=== PATIENT | male | born 1935 | race Caucasian/White ===

== ENCOUNTER 2016-12-18 02:58 | Inpatient (IN) | payer MEDICARE ==
--- NOTE | ~2016-12-18 | HP ---
History And Physical [facility] [address] [facility] [place]. [address] NAME: EDA BENSON : 34 STATUS : ADM Sal PAT#: [id number] AGE: 81 ADM/REG DATE : 12/18/16 MR#: [id number] REPORT SERV DATE: 12/18/16 DICTATED BY: SABAS BENJAMIN DATE: 12/18/16 REPORT STATUS : Draft TRANSCRIBED BY: MODL DATE: 12/18/16 DATE OF ADMISSION: 12/18/2016 CHIEF COMPLAINT: Bleeding per rectum. HISTORY OF PRESENT ILLNESS: This is an 81-year-old male with a history of atrial fibrillation, DVT, and pulmonary embolism in the past who presents to the emergency room at [facility] with the above-mentioned complaint. History was obtained from the patient, and reviewing data available on the [employer] system. According to Mr. Benson, he had been in his usual state of health until early in the morning on Saturday when he woke up, and after a while had to have a bowel movement. He did this and it was nothing but bright red blood. He then realized it was all blood. He thought it was something he ate, may be a vegetable and he was fine during the day. By evening, he was weaker and then had series of bowel movements all bright red and he knew he was bleeding. Finally, he decided to come to the emergency room to be evaluated. In the emergency room, initial workup revealed acute GI bleeding with coagulopathy secondary to warfarin therapy. He also had acute kidney injury. Hospitalist Service was asked to admit him for further evaluation and treatment. At the time of my evaluation, he denied any chest pain, palpitations, or orthopnea. He had no cough, hemoptysis, night sweats, or weight loss. He denied any recent falls or loss of consciousness. No history of fevers, chills, nausea, or vomiting. No history of hematuria. No other history of recent travel or exposures. PAST MEDICAL HISTORY: Significant for history of DVT and pulmonary embolism. He has coronary artery disease with stent placement, history of atrial fibrillation, as well. He is on chronic anticoagulation for all these. He has hypertension, history of diverticulitis, history of hernia repair, and appendectomy. SOCIAL HISTORY: He does not smoke, drink, or use recreational drugs. FAMILY HISTORY: Noncontributory. MEDICATIONS: His medications at home were reviewed by me in the chart today and reordered by me. REVIEW OF SYSTEMS: As in history of present illness. All other systems were reviewed in detail and are quite unremarkable. PHYSICAL EXAMINATION: GENERAL: This is a pleasant 81-year-old, not in any acute distress. HEENT: His head is atraumatic, normocephalic. He is alert, awake, oriented to time, place, and person. Pupils are equal, reacting to light and accommodating. External ocular muscles History And Physical [address] [address] NAME: EDA BENSON : 34 STATUS : ADM Sal PAT#: [id number] AGE: 81 ADM/REG DATE : 12/18/16 MR#: [id number] REPORT SERV DATE: 12/18/16 DICTATED BY: SABAS BENJAMIN DATE: 12/18/16 REPORT STATUS : Draft TRANSCRIBED BY: DESTINI DATE: 12/18/16 are intact. Membranes are moist and pink. Sclerae are nonicteric. NECK: Supple with no jugular venous distention, lymphadenopathy, or thyromegaly. LUNGS: Clear to auscultation with no wheezes, rubs, or crackles. HEART: Heart sounds are regular with no murmurs, rubs, or gallops. ABDOMEN: Soft, nontender. Bowel sounds are present. EXTREMITIES: Show no cyanosis, clubbing, or edema. NEUROLOGIC: Grossly intact. No focal sensory or motor deficits. Higher functions appear intact. Gait was not examined. VITAL SIGNS: His vital signs today show a temperature of 97.5, pulse 79, respirations 20 a minute, blood pressure is 141/69, oxygen saturations are 96%, breathing 2 L of oxygen via nasal cannula. LABORATORY DATA: Reviewed on the [employer] system showed a sodium of 142, potassium 3.6, chloride 108, and CO2 of 27. BUN was 21 with a creatinine of 1.46, and glucose was 101. CBC showed a white blood cell count of 6600, hemoglobin of 11.8, hematocrit 34.9, and platelet count was 134,000. His prothrombin time was 23.8 with an INR of 2.2 today. Urinalysis was not done. A 12-lead EKG done in the emergency room was reviewed and interpreted by me. There is atrial fibrillation at a rate of 71 per minute. No other imaging was performed today. A 12 lead EKG done in emergency room was reviewed and interpreted by me. There is atrial fibrillation at a rate of 71 per minute. IMPRESSION: 1. Acute gastrointestinal bleeding to coagulopathy secondary to Coumadin therapy. 2. Atrial fibrillation, rate controlled. 3. Acute kidney injury. 4. History of deep venous thrombosis and pulmonary embolism. 5. Coronary artery disease with stent placement, on Coumadin therapy. 6. Essential hypertension. 7. History of diverticulitis. PLAN: We will admit Mr. Benson to the Hospitalist Service with cardiac telemetry for a 24- hour observation period. We will type cross and transfuse two units of fresh frozen plasma as ordered in the ER and also give him 5 units of vitamin K right away to reverse his coagulopathy. We will go ahead and consult Gastroenterology Service to see him in the morning and keep him NPO. We will also follow hemoglobin and hematocrit levels every 6 hours and transfuse as needed. He will also be on IV fluids for aggressive volume replacement. We will follow chemistry, electrolytes, and replace as needed and follow CBC. His atrial fibrillation is stable. His rate is controlled. We will go ahead and consult his computer systems information director, Dr. Linares, regarding his cardiac stents and anticoagulation. He will be placed on SCDs for DVT prophylaxis while he is here. I have discussed the above plans with the patient. His questions were answered, and he is agreeable to the above recommendations. Hospitalist Service will be following him during his stay here. History And Physical [address] [address] NAME: EDA BENSON : 34 STATUS : ADM Sal PAT#: [id number] AGE: 81 ADM/REG DATE : 12/18/16 MR#: [id number] REPORT SERV DATE: 12/18/16 DICTATED BY: SABAS BENJAMIN DATE: 12/18/16 REPORT STATUS : Draft TRANSCRIBED BY: DESTINI DATE: 12/18/16 /DESTINI Sabas Benjamin M.D. / [id number] CC: Celio Stephenson M.D.
--- NOTE | ~2016-12-18 | DS ---
Discharge Summary [facility] [address] [place]. [address] NAME: EDA BENSON : 34 STATUS : DIS IN PAT#: [id number] AGE: 81 ADM/REG DATE : 12/18/16 MR#: [id number] REPORT SERV DATE: 12/27/16 DICTATED BY: DATE: REPORT STATUS : Draft TRANSCRIBED BY: MODL DATE: 12/26/16 ADMISSION DATE: 12/18/2016 DISCHARGE DATE: 12/26/2016 The patient was admitted to the [facility] Hospitalist Service. ATTENDING PHYSICIANS: Dr. Jennie Persaud and Dr. Odilon Askew. CONSULTANTS: Included Dr. Lentz of Gastroenterology and Dr. Liriano of Cardiology. DISCHARGE DIAGNOSES: 1. Acute blood loss anemia due to lower GI bleed, diverticular, status post embolization in Interventional Radiology on 12/18/2016. Status post packed red blood cell transfusion on 12/19/2016 and 12/21/2016. Status post fresh frozen plasma on 12/18/2016. Discharge hemoglobin value 8.1 - asymptomatic. 2. Chronic anticoagulation for atrial fibrillation, history of DVT, history of PE. Coumadin restarted 12/23/2016 with no evidence of rebleeding. 3. Permanent atrial fibrillation. 4. Chronic systolic heart failure with ejection fraction of 45%, compensated. 5. Coronary artery disease, status post remote cardiac stenting. 6. History of chronic venous insufficiency and insufficiency ulcers - stable. 7. Chronic kidney disease, stage 2-3. 8. Documented past histories of diabetes and hypothyroidism - no data to support those as current diagnoses. IMAGING: Included a tagged red blood cell scan on 12/18/2016 showing active GI bleed at the level of the sigmoid colon. PROCEDURES: Coil embolization of active bleeding point identified in the region of the junction of the distal descending colon and sigmoid colon on 12/18/2016 in Interventional Radiology. PERTINENT LABS: Creatinine values ranging from 1.28 to 1.46 this admission. Normal electrolytes. Normal liver enzymes. Normal white blood cell count. Hemoglobin value initially 11.7, as low as 7.4 this admission, 8.1 at discharge. Platelet counts ranging from 112 to 149. INR at admission 2.2, 1.5 at discharge. BRIEF HISTORY: For full details, please see the previously dictated history of present illness by Sabas Pierce. This is an 81-year-old white male with history of atrial fibrillation, DVT, pulmonary embolism, on chronic anticoagulation, who presented to the emergency department on 12/18/2016 with several episodes of bright red blood per rectum. He was admitted to the Hospitalist Service for further management and evaluation. HOSPITAL COURSE: For full details, please reference interim discharge summary by Dr. Jennie Persaud for dates of service 12/18/2016 through 12/24/2016. The patient's bright red blood per rectum was found to be diverticular in nature on the basis of a tagged red blood cell scan. Discharge Summary [address] [place]. [address] NAME: EDA BENSON : 34 STATUS : DIS IN PAT#: [id number] AGE: 81 ADM/REG DATE : 12/18/16 MR#: [id number] REPORT SERV DATE: 12/27/16 DICTATED BY: DATE: REPORT STATUS : Draft TRANSCRIBED BY: MODL DATE: 12/26/16 The patient underwent successful coil embolization in Interventional Radiology on the day of admission. The patient was given 2 units of packed red blood cells and one unit of FFP. He was monitored in the intensive care unit after his embolization, and transferred back to the floor on 12/21/2016. Recommendation was to resume his Coumadin per both Cardiology and Gastroenterology on 12/23/2016. Pharmacy was consulted and managed Coumadin dosing. The patient received 5 mg of Coumadin on the to and with a discharge INR of 1.5, to resume Coumadin 3 mg p.o. daily per his prior home regimen, with close monitoring by Home Health and results to the [facility]. The patient had no recurrence of bleeding following re-initiation of Coumadin, and his blood counts remained stable with hemoglobin ranging from 8.1 to 8.5. He was asymptomatic with this and denied any chest pain, shortness of breath, dizziness, or weakness. He was evaluated by Physical Therapy and was found to be doing too well to benefit from inpatient rehab. He was able to ambulate more than 200 feet in the hallways with minimal assistance. Thus, he is being discharged to home with Home Health for vital sign and lab monitoring and home physical therapy for additional strengthening. DISCHARGE DISPOSITION: To home in the care of his supportive with no specific activity or dietary restrictions. Home health and home physical therapy are being established as above. Home Health is requested to check a PT/INR on 12/28/2016, and again on 12/31/[address] Linares in the [facility] for any additional adjustments. The patient also needs to follow up with primary care provider, Say barrientos, within two to three weeks for repeat CBC. He is instructed to return to the emergency department if he develops any recurrence of bright red blood per rectum, at which point, Coumadin may need to be discontinued and consideration of IVC filter instead. DISCHARGE MEDICATIONS: Include: 1. Amlodipine 10 mg p.o. at bedtime. 2. Vitamin C 800 mg p.o. twice a day. 3. Vitamin D 400 units p.o. q.a.m. 4. Vitamin D 5000 international units p.o. q.a.m. 5. Proscar 5 mg p.o. at bedtime. 6. Furosemide 40 mg p.o. q.a.m. 7. Iron sulfate 300 mg p.o. twice a day. 8. Imdur 30 mg p.o. q.a.m. 9. Prinivil 10 mg p.o. at bedtime. 10.Magnesium oxide 400 mg p.o. q.p.m. 11.Toprol-XL 25 mg p.o. q.p.m. 12.Potassium chloride 10 mEq p.o. q.a.m. 13.MiraLAX one packet p.o. at bedtime every other night. 14.Vitamin A 8000 international units p.o. q.a.m. 15.Jantoven 3 mg p.o. every afternoon. Discharge Summary [address] [facility] [place]. [address] NAME: EDA BENSON : 34 STATUS : DIS IN PAT#: [id number] AGE: 81 ADM/REG DATE : 12/18/16 MR#: [id number] REPORT SERV DATE: 12/27/16 DICTATED BY: DATE: REPORT STATUS : Draft TRANSCRIBED BY: MODL DATE: 12/26/16 16.Hydralazine 100 mg p.o. three times a day. 17.Ginkgo one cap p.o. q.a.m. 18.Centrum multivitamin half a tablet p.o. twice a day. 19.Vitamin B one tablet p.o. twice a day. 20.Fish oil one tablet p.o. every afternoon. 21.Garlic 500 mg p.o. every afternoon. 22.Colace 100 mg p.o. b.i.d. The patient's beetroot from home is held as this could cause red stools obscuring the patient's ability to detect blood in the outpatient setting. Also his aspirin is held as he has no known coronary artery disease, in order to decrease bleeding risk on both Coumadin and aspirin. Thirty five minutes was spent in completion of the discharge. DICTATED BY: Celio Rey/DESTINI Odilon Askew M.D. / [id number] CC: Celio Rey M.D. C. Samuel Ledford, M.D.
--- NOTE | ~2016-12-18 | CN ---
Consultation Report [facility] [address] [place]. [address] NAME: EDA BENSON : 34 STATUS : ADM Sal PAT#: [id number] AGE: 81 ADM/REG DATE : 12/18/16 MR#: [id number] REPORT SERV DATE: 12/19/16 DICTATED BY: GIOVANNI LIRIANO DATE: 12/18/16 REPORT STATUS : Draft TRANSCRIBED BY: MODL DATE: 12/18/16 CARDIOLOGY CONSULTATION DATE OF CONSULTATION: REASON FOR CONSULTATION: GI bleed in the setting of chronic atrial fibrillation and usage of anticoagulants and anti-platelet therapy. HISTORY: The patient is an 81-year-old gentleman followed by my partner, Dr. Linares, with a history of permanent atrial fibrillation, chronic systolic heart failure with an EF of 45%, coronary artery disease, and chronic venous insufficiency. He was last hospitalized in 04/2010 for volume overloaded status. He was seen on 10/18/2016 and at that time was stable. Over the weekend, he noted a change in his bowel movements and yesterday developed recurrent bouts of melanotic stool. He presented to the ER for further evaluation and therapy. He has had no PND or orthopnea. No chest discomfort. The patient has chronic venous stasis with history of multiple recurrent ulcerations and endovascular procedures. He is followed by home health and the [facility] at [facility]. CURRENT HOME MEDICATIONS: Amlodipine 10 every afternoon, ascorbic acid 800 b.i.d., aspirin 81 mg, B complex, vitamins daily, cholecalciferol 5000 per day, finasteride 5 per day, furosemide 40 q.a.m., ginkgo biloba one capsule q.a.m., hydralazine 100 three times a day, isosorbide 30 each evening, Prinivil 10 q.a.m., Mag-Ox 400 daily, metoprolol 25 q.p.m., multivitamins b.i.d., potassium 10 every afternoon, beetroot [id number], fish oil unknown strength, garlic 500 at bedtime, vitamin A 1000 q.a.m., and Jantoven as directed. ALLERGIES OR INTOLERANCES: Diltiazem and heparin. SOCIAL HISTORY: for 60 years. Lives with his . 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 Negative for alcohol or tobacco use. He attends [employer] fellowship for the past 20 years. FAMILY HISTORY: Brother of diabetes. Mother of heart disease. Father of heart disease. He has four sons, two with diabetes and two with Parkinson's. PAST MEDICAL HISTORY/REVIEW OF SYSTEMS: He has had previous exacerbations of heart failure and has been hospitalized a couple of times for such. He has chronic atrial fibrillation and LV dysfunction as noted above. Type 2 diabetes mellitus. His CHADS2-VASc score is 6, and he is on chronic anticoagulation for stroke prevention. PHYSICAL EXAMINATION: GENERAL: An 81-year-old white male, pleasant, in no acute distress. VITAL SIGNS: Blood pressure 141/69, pulse 79, respirations 18. Consultation Report [address] [address] NAME: EDA BENSON : 34 STATUS : ADM Sal PAT#: [id number] AGE: 81 ADM/REG DATE : 12/18/16 MR#: [id number] REPORT SERV DATE: 12/19/16 DICTATED BY: GIOVANNI LIRIANO DATE: 12/18/16 REPORT STATUS : Draft TRANSCRIBED BY: DESTINI DATE: 12/18/16 SKIN: No xanthelasmas. HEENT: Normocephalic. There is no pallor. Sclerae white. JVD is not elevated. CHEST: No crackles. CARDIAC: S1 variable, S2 singular. There are no murmurs. There are no gallops. ABDOMEN: Without tenderness. EXTREMITIES: Lower extremities are wrapped for his venous insufficiency. NEUROLOGIC: No focal deficits. IMPRESSION: Gastrointestinal bleed, likely diverticular. Hold Coumadin for the time being. Ideally, he should be on some type of anticoagulant given his high stroke score risk. Further recommendations as his course evolves. FRANKO/DESTINI Giovanni Liriano M.D. / [id number] CC: Celio Stephenson M.D.
--- NOTE | ~2016-12-18 | CN ---
Consultation Report [facility] [address] [place]. [address] NAME: EDA BENSON : 34 STATUS : ADM Sal PAT#: [id number] AGE: 81 ADM/REG DATE : 12/18/16 MR#: [id number] REPORT SERV DATE: 12/18/16 DICTATED BY: DESTINY GREEN DATE: 12/18/16 REPORT STATUS : Draft TRANSCRIBED BY: MODL DATE: 12/18/16 GI CONSULTATION DATE OF CONSULTATION: 12/18/2016 REASON FOR CONSULTATION: Evaluation and management of lower GI bleeding. HISTORY OF PRESENT ILLNESS: Mr. Benson is an 81-year-old male patient, who was admitted on 12/18/2016 with a chief complaint of lower GI bleeding. 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 The patient states that initially he woke up and had a bowel movement just a slight amount of bright red blood intermixed that he really states he did not think nothing about. He went throughout the day. However, in the afternoon he began to have more bright red blood per rectum. He states this was very large volume and happened multiple times. He awoke his in the middle of the night to bring him into the emergency room. He denies any associated abdominal pain. He has never had GI bleeding before. He has never had an EGD nor a colonoscopy before. He has continued to pass bright red blood on my assessment. Rectal exam was going to be attempted; however, when I turned him over, he had nothing but bright red blood with clots filling up his brief. He states that this is continually happening, he is unable to control it. Hemoglobin on admission 11.7 has currently dropped to 10.7. He does have a history of atrial fibrillation, on a routine medication of Jantoven. INR on admission was 2.2. He has received 5 mg of vitamin K, and per orders of the Hospitalist, he is going to get a unit of FFP. I have discussed with the patient as well as the patient's , who is present at the bedside. We are going to send him for a stat tagged red blood cell scan, and if positive, to Interventional Radiology for treatment. If negative, he will have clear liquid diet, bowel prep this afternoon, and colonoscopy in the morning. Risks, benefits, alternatives, and complications were listed for them to include, but not limited to risk of bleeding, perforation, infection, reaction to medication, as well as cardiac and pulmonary side effects. PAST MEDICAL HISTORY: Positive for chronic systolic heart failure; chronic atrial fibrillation, on Jantoven; coronary artery disease; chronic venous insufficiency; CKD 3; type 2 diabetes; history of a DVT; hypertension; hypothyroidism; hyperlipidemia; PE; tuberculosis, exposure as a child; cardiac stent placement; and diverticulitis. PAST SURGICAL HISTORY: Hernia repair and appendectomy. SOCIAL HISTORY: He is . Lives independently with his . Denies alcohol, tobacco, or illicits. FAMILY HISTORY: Noncontributory from a GI standpoint. ALLERGIES: CARDIZEM AND HEPARIN. Consultation Report [address] [place]. [address] NAME: EDA BENSON : 34 STATUS : ADM Sal PAT#: [id number] AGE: 81 ADM/REG DATE : 12/18/16 MR#: [id number] REPORT SERV DATE: 12/18/16 DICTATED BY: DESTINY GREEN DATE: 12/18/16 REPORT STATUS : Draft TRANSCRIBED BY: DESTINI DATE: 12/18/16 HOME MEDICATIONS: Norvasc, vitamin C, aspirin, vitamin B complex, vitamin D3, vitamin D, Proscar, Lasix, ginkgo biloba, hydralazine, Imdur, Proventil, magnesium oxide, Toprol, Centrum, multivitamin, potassium, beetroot, fish oil, garlic, vitamin A, and Jantoven. REVIEW OF SYSTEMS: A 10-point review of systems has been obtained with pertinent positives being addressed in the history of present illness. PHYSICAL EXAMINATION: VITAL SIGNS: Temperature 97.1, pulse 72, respirations 16, and blood pressure 122/67. NEUROLOGIC: Reveals an alert male, resting in bed with no obvious focal deficits. GENERAL: Cooperative, in no apparent distress. Awake, alert, and oriented x3. HEAD, EARS, EYES, NOSE, AND THROAT: Anicteric. Pupils are equal, round, and reactive to light and accommodation. Normocephalic and atraumatic. NECK: No JVD. No palpable nodes. Supple. LUNGS: Diminished throughout. Normal respiratory effort exhibited. CARDIOVASCULAR SYSTEM: Atrial fibrillation, controlled rate. ABDOMEN: Soft, nondistended, and nontender. Active bowel sounds in all four quadrants. EXTREMITIES: Very scant mild lower extremity edema. RECTAL: Deferred. Upon assessment, the patient was having continuous bright red blood per rectum with clots. PERTINENT LABORATORY DATA: Sodium 142, potassium 3.6, BUN 21, and creatinine 1.46. White count 6.6, hemoglobin 10.7, hematocrit 32.3, and platelet count 134 with an INR of 2.2. ASSESSMENT: 1. Lower gastrointestinal bleed, most likely diverticular in nature. 2. Coagulopathy. 3. Acute blood loss anemia. 4. History of atrial fibrillation, on . 5. History of congestive heart failure. PLAN: 1. Stat tagged red blood cell scan, positive for intervention with the Interventional Radiology. 2. FFP. 3. Recheck INR, must be down to 1.5 or less. If tagged scan is negative, then we will prep him for colonoscopy to be done on 12/19/2016. We will follow his H and H q.6 hours and transfuse as needed. Other recommendations to follow endoscopy. RENEA/DESTINI Elizabeth Consultation Report [address] [place]. [address] NAME: EDA BENSON : 34 STATUS : ADM Sal PAT#: [id number] AGE: 81 ADM/REG DATE : 12/18/16 MR#: [id number] REPORT SERV DATE: 12/18/16 DICTATED BY: DESTINY GREEN DATE: 12/18/16 REPORT STATUS : Draft TRANSCRIBED BY: MODL DATE: 12/18/16 HAVEN Peralta / [id number] CC: Celio Stephenson M.D.
--- NOTE | ~2016-12-18 | IDS ---
Interim Discharge Summary [facility] [address] [place]. [address] NAME: EDA BENSON : 33 STATUS : ADM IN PAT#: [id number] AGE: 81 ADM/REG DATE : 12/18/16 MR#: [id number] REPORT SERV DATE: 12/24/16 DICTATED BY: ELVIS ZAIDI DATE: 12/24/16 REPORT STATUS : Draft TRANSCRIBED BY: MODL DATE: 12/24/16 ADMISSION DATE: 12/18/2016 DISCHARGE DATE: Date of transfer back from the MICU is 12/21/2016. CONDITION: Condition of the patient so far is stable. DISPOSITION: Going to be to inpatient rehab, most likely [facility]. DIAGNOSES: So far include acute lower gastrointestinal bleed, which was severe and acute, secondary to diverticulosis and coagulopathy. The patient was given several units of blood transfusion, supportive care, and as he had massive and severe GI bleed, he was admitted to the ICU. The patient underwent angiography and embolization and GI has continued to see the patient. Now, the patient is stable and GI bleed essentially has resolved or at least resolving, but his hemoglobin and hematocrit continues to stay low. Requirement for chronic anticoagulation is acute in this patient also, as the patient has chronic atrial fibrillation and is at high risk for stroke. The patient also has a history of DVT and PE, which all the more requires anticoagulation. Web Interface Developer has been following this patient. He was seen by Dr. Liriano and now by Dr. Mckeon, and they both recommend that the patient go back on the Coumadin. Hence, his Coumadin has been restarted and we are watching very carefully to make sure that he does not have any more episodes of GI bleed. BRIEF HOSPITAL COURSE: The patient is a very pleasant 81-year-old male patient, who came in with massive lower gastrointestinal bleed. The patient received several units of blood transfusion, supportive care, and underwent angiography with embolization of the feeding vessel, and was transferred back from the ICU to a regular floor. On the floor, even though he has not been having any more acute episodes of visible GI bleed, his hemoglobin and hematocrit simply do not seem to be rising in fact that is falling. GI continues to see the patient and Cardiology is seeing the patient too and they have recommended that we restart the Coumadin because he is high risk for stroke also. Hence, the plan on this patient now is to definitely send him to a rehab as he is very deconditioned from massive GI bleed that he has had. The is very supportive and also wants the patient to be transferred to an inpatient rehab. However, they wanted definitive answers as to the risks of being off Coumadin and on Coumadin in this patient. I tried to explain to both the CHADS2 score and HAS-BLED score to the patient's family, but they would like to hear this from the GI specialist. The patient definitely does not want to have another episode of massive bleed like this, but he also seems to think that constipation may have been what set this off at this time. Hence most likely they are going to agree to anticoagulation with Coumadin. Hence, I have restarted this patient on Coumadin and I also have him on ferrous sulfate to improve his H and H. If his H and H at least stays stable within the next day or two, please transfer him to inpatient rehab, preferably [facility] according to . This is my interim summary and this patient will be taken over by my colleague on 12/25/2016. Interim Discharge Summary [address] [address] NAME: EDA BENSON : 33 STATUS : ADM IN [facility]#: [id number] AGE: 81 ADM/REG DATE : 12/18/16 MR#: [id number] REPORT SERV DATE: 12/24/16 DICTATED BY: ELVIS ZAIDI DATE: 12/24/16 REPORT STATUS : Draft TRANSCRIBED BY: DESTINI DATE: 12/24/16 JUNE/DESTINI Elvis Zaidi M.D. / [id number] CC: Elvis Zaidi M.D.
[2016-12-18 01:48] LABS: BASOPHILS 0.5 %; BASOPHILS ABSOLUTE 0.03 10/3/uL (0.0-0.16); EOSINOPHILS 4.1 %; EOSINOPHILS ABSOLUTE 0.27 10/3/uL (0.0-0.53); HEMOGLOBIN 11.7 g/dL (13.6-17.8); IMMATURE GRANULOCYTES 0.3 %; IMMATURE GRANULOCYTES ABSOLUTE 0.02 10/3/uL (0.0-0.11); LYMPHOCYTES 24.1 %; LYMPHOCYTES ABSOLUTE 1.58 10/3/uL (0.67-4.30); MEAN CORPUS HGB CONC 33.5 g/dL (32.0-36.0); MEAN CORPUSCULAR HEMOGLOB 30.8 pg (26.0-34.0); MEAN CORPUSCULAR VOLUME 91.8 fL (80-100); MEAN PLATELET VOLUME 10.8 fL (9.2-13.0); MONOCYTES 12.1 %; MONOCYTES ABSOLUTE 0.79 10/3/uL (0.21-1.20); NEUTROPHILS 58.9 %; NEUTROPHILS ABSOLUTE 3.86 10/3/uL (2.02-8.40); RBC DISTRIBUTION WIDTH 16.6 % (12.0-16.0); WHITE BLOOD CELLS 6.6 10/3/uL (4.5-10.5)
[2016-12-18 01:50] LABS: HEMATOCRIT 34.9 % (40.0-51.0); MANUAL DIFF NO %; PLATELET COUNT 134 10/3/uL (150-400)
[2016-12-18 01:54] LABS: INTERNATIONAL NORMAL RATI 2.2 UNITS (-)
[2016-12-18 01:55] LABS: PARTIAL THROMBO TIME 39.9 SEC (22.5-37.2); PROTIME (NOT ORD) 23.8 SEC (12.0-14.5)
[2016-12-18 02:02] LABS: A/G RATIO 1.1 (0.7-1.9); ALBUMIN 3.6 G/DL (3.5-5.0); ALKALINE PHOSPHATASE 82 U/L (45-117); CALCIUM, SERUM 8.6 MG/DL (8.5-10.4); CHLORIDE, SERUM 108 MMOL/L (96-112); CO2 (CARBON DIOXIDE) 27 MMOL/L (24-34); CREATININE 1.46 MG/DL (0.70-1.30); GFR AFRICAN AMERICAN 51 ML/MIN (>=60); GFR NON AFRICAN AMERICAN 44 ML/MIN (>=60); GLOBULIN 3.3 G/DL (2.5-4.1); GLUCOSE, SERUM 101 MG/DL (60-99); POTASSIUM, SERUM 3.6 MMOL/L (3.5-5.3); SGOT(AST) 11 U/L (5-40); SGPT(ALT) 11 U/L (5-65); SODIUM, SERUM 142 MMOL/L (135-148); TOTAL BILIRUBIN 0.6 MG/DL (0-1.2); TOTAL PROTEIN 6.9 G/DL (6.0-8.5)
[2016-12-18 02:03] LABS: BUN (BLOOD UREA NITROGEN) 21 MG/DL (6-23)
[~2016-12-18 02:58] MED LIST: ASAB PO; BEET ROOT; CENTRUM PO; D 5000 PO; FISH OIL1200 MG PO; GARLIC PO; HYDRALAZINE100 MG PO; IMDUR30 PO; JANTOVEN3 MG PO; KLOR-CON 1010 MEQ PO; L40 PO; MAGOX4 PO; NORV10 PO; PRIN10 PO; PROSCAR5 PO; SLO-NIACIN500 MG PO; TOPXL25 PO; VITAMIN A8000 UNIT PO; VITAMIN B-121000 MC1 SL; VITAMIN D400 UNI1 PO; VITC500 PO; VITE PO
[2016-12-18] MEDS ORDERED: CENTRUM PO (03:51)
[2016-12-18] MEDS ORDERED: GINKGO BILO2 PO (03:51)
[2016-12-18] MEDS ORDERED: L40 PO (03:52)
[2016-12-18] MEDS ORDERED: VITAMIN B PO (03:52)
[2016-12-18] MEDS ORDERED: VITAMIN C100 MG PO (03:54)
[2016-12-18] MEDS ORDERED: VITAMIN D400 UNI1 PO (03:54)
[2016-12-18] MEDS ORDERED: VITAMIN A8000 UNIT PO (03:54)
[2016-12-18] MEDS ORDERED: VITAMIN D31000 UNIT PO (03:55)
[2016-12-18] MEDS ORDERED: NORV10 PO (03:56)
[2016-12-18] MEDS ORDERED: [UNRECOGNIZED DRUG - OTHER] PO (03:57)
[2016-12-18] MEDS ORDERED: FISH OIL OTC PO (03:58)
[2016-12-18] MEDS ORDERED: JANTOVEN3 MG PO (04:00)
[2016-12-18] MEDS ORDERED: MAGOX4 PO (04:01)
[2016-12-18] MEDS ORDERED: TOPXL25 PO (04:01)
[2016-12-18] MEDS ORDERED: KDUR10 PO (04:01)
[2016-12-18] MEDS ORDERED: GARLIC 500 MG PO (04:04)
[2016-12-18] MEDS ORDERED: PROSCAR5 PO (04:06)
[2016-12-18] MEDS ORDERED: HYDRALAZINE100 MG PO (04:07)
[2016-12-18] MEDS ORDERED: PRIN10 PO (04:07)
[2016-12-18] MEDS ORDERED: ASAB PO (04:08)
[2016-12-18] MEDS ORDERED: IMDUR30 PO (04:08)
[2016-12-18 07:43] LABS: HEMATOCRIT 32.3 % (40.0-51.0); HEMOGLOBIN 10.7 g/dL (13.6-17.8)
[2016-12-18 13:34] LABS: HEMATOCRIT 27.2 % (40.0-51.0); HEMOGLOBIN 9.3 g/dL (13.6-17.8)
[2016-12-18 19:03] LABS: HEMATOCRIT 26.8 % (40.0-51.0); HEMOGLOBIN 9.2 g/dL (13.6-17.8)
[2016-12-18 19:13] LABS: INTERNATIONAL NORMAL RATI 1.6 UNITS (-)
[2016-12-18 19:23] LABS: PROTIME (NOT ORD) 19.3 SEC (12.0-14.5)
[2016-12-18 23:19] LABS: HEMATOCRIT 26.5 % (40.0-51.0)
[2016-12-19 03:06] LABS: BASOPHILS 0.1 %; BASOPHILS ABSOLUTE 0.01 10/3/uL (0.0-0.16); EOSINOPHILS 0 %; HEMATOCRIT 26.1 % (40.0-51.0); HEMOGLOBIN 8.7 g/dL (13.6-17.8); IMMATURE GRANULOCYTES 0.1 %; IMMATURE GRANULOCYTES ABSOLUTE 0.01 10/3/uL (0.0-0.11); LYMPHOCYTES 9.9 %; LYMPHOCYTES ABSOLUTE 0.79 10/3/uL (0.67-4.30); MEAN CORPUS HGB CONC 33.3 g/dL (32.0-36.0); MEAN CORPUSCULAR HEMOGLOB 30.9 pg (26.0-34.0); MEAN CORPUSCULAR VOLUME 92.6 fL (80-100); MEAN PLATELET VOLUME 11.3 fL (9.2-13.0); NEUTROPHILS 84.9 %; NEUTROPHILS ABSOLUTE 6.78 10/3/uL (2.02-8.40); PLATELET COUNT 116 10/3/uL (150-400); RBC DISTRIBUTION WIDTH 16.2 % (12.0-16.0)
[2016-12-19 03:08] LABS: RED CELL COUNT 2.82 10/6/uL (4.7-6.1)
[2016-12-19 03:16] LABS: INTERNATIONAL NORMAL RATI 1.5 UNITS (-)
[2016-12-19 03:22] LABS: BUN (BLOOD UREA NITROGEN) 18 MG/DL (6-23); CALCIUM, SERUM 7.9 MG/DL (8.5-10.4); CHLORIDE, SERUM 112 MMOL/L (96-112); CO2 (CARBON DIOXIDE) 26 MMOL/L (24-34); CREATININE 1.13 MG/DL (0.70-1.30); GFR AFRICAN AMERICAN 70 ML/MIN (>=60); GFR NON AFRICAN AMERICAN 60 ML/MIN (>=60); GLUCOSE, SERUM 158 MG/DL (60-99); PHOSPHORUS, SERUM 3.5 MG/DL (2.5-4.5); POTASSIUM, SERUM 3.5 MMOL/L (3.5-5.3); SODIUM, SERUM 145 MMOL/L (135-148)
[2016-12-19 06:49] LABS: HEMATOCRIT 23.9 % (40.0-51.0); HEMOGLOBIN 7.8 g/dL (13.6-17.8)
[2016-12-19 13:14] LABS: HEMATOCRIT 26.5 % (40.0-51.0)
[2016-12-19 16:18] LABS: HEMATOCRIT 26.5 % (40.0-51.0); HEMOGLOBIN 9.2 g/dL (13.6-17.8)
[2016-12-19 23:15] LABS: HEMATOCRIT 27.1 % (40.0-51.0); HEMOGLOBIN 8.8 g/dL (13.6-17.8)
[2016-12-20 05:23] LABS: BASOPHILS 0.2 %; BASOPHILS ABSOLUTE 0.02 10/3/uL (0.0-0.16); EOSINOPHILS 1.2 %; HEMATOCRIT 26.2 % (40.0-51.0); HEMOGLOBIN 8.8 g/dL (13.6-17.8); IMMATURE GRANULOCYTES 0.4 %; IMMATURE GRANULOCYTES ABSOLUTE 0.03 10/3/uL (0.0-0.11); LYMPHOCYTES 14.9 %; LYMPHOCYTES ABSOLUTE 1.22 10/3/uL (0.67-4.30); MANUAL DIFF NO %; MEAN CORPUS HGB CONC 33.6 g/dL (32.0-36.0); MEAN CORPUSCULAR HEMOGLOB 30.9 pg (26.0-34.0); MEAN CORPUSCULAR VOLUME 91.9 fL (80-100); MEAN PLATELET VOLUME 10.7 fL (9.2-13.0); MONOCYTES 9.6 %; MONOCYTES ABSOLUTE 0.79 10/3/uL (0.21-1.20); NEUTROPHILS 73.7 %; NEUTROPHILS ABSOLUTE 6.05 10/3/uL (2.02-8.40); PLATELET COUNT 125 10/3/uL (150-400); RBC DISTRIBUTION WIDTH 17.2 % (12.0-16.0); RED CELL COUNT 2.85 10/6/uL (4.7-6.1); WHITE BLOOD CELLS 8.2 10/3/uL (4.5-10.5)
[2016-12-20 05:33] LABS: BUN (BLOOD UREA NITROGEN) 17 MG/DL (6-23); CALCIUM, SERUM 8.1 MG/DL (8.5-10.4); CHLORIDE, SERUM 112 MMOL/L (96-112); CO2 (CARBON DIOXIDE) 26 MMOL/L (24-34); CREATININE 1.22 MG/DL (0.70-1.30); GFR AFRICAN AMERICAN 64 ML/MIN (>=60); GFR NON AFRICAN AMERICAN 55 ML/MIN (>=60); GLUCOSE, SERUM 143 MG/DL (60-99); POTASSIUM, SERUM 3.5 MMOL/L (3.5-5.3); SODIUM, SERUM 145 MMOL/L (135-148)
[2016-12-20 09:51] LABS: HEMATOCRIT 27.7 % (40.0-51.0)
[2016-12-20 11:25] LABS: INTERNATIONAL NORMAL RATI 1.3 UNITS (-)
[2016-12-20 16:14] LABS: HEMOGLOBIN 8.2 g/dL (13.6-17.8)
[2016-12-20 16:15] LABS: HEMATOCRIT 24.8 % (40.0-51.0)
[2016-12-21 06:01] LABS: BASOPHILS 0.2 %; BASOPHILS ABSOLUTE 0.01 10/3/uL (0.0-0.16); EOSINOPHILS 2.3 %; EOSINOPHILS ABSOLUTE 0.14 10/3/uL (0.0-0.53); HEMATOCRIT 22.7 % (40.0-51.0); HEMOGLOBIN 7.4 g/dL (13.6-17.8); IMMATURE GRANULOCYTES 0.5 %; IMMATURE GRANULOCYTES ABSOLUTE 0.03 10/3/uL (0.0-0.11); LYMPHOCYTES 27.3 %; LYMPHOCYTES ABSOLUTE 1.65 10/3/uL (0.67-4.30); MEAN CORPUS HGB CONC 32.6 g/dL (32.0-36.0); MEAN CORPUSCULAR HEMOGLOB 30.3 pg (26.0-34.0); MEAN PLATELET VOLUME 10.7 fL (9.2-13.0); MONOCYTES 11.1 %; MONOCYTES ABSOLUTE 0.67 10/3/uL (0.21-1.20); NEUTROPHILS 58.6 %; NEUTROPHILS ABSOLUTE 3.55 10/3/uL (2.02-8.40); PLATELET COUNT 112 10/3/uL (150-400); RBC DISTRIBUTION WIDTH 17.2 % (12.0-16.0); RED CELL COUNT 2.44 10/6/uL (4.7-6.1); WHITE BLOOD CELLS 6.1 10/3/uL (4.5-10.5)
[2016-12-21 06:04] LABS: MANUAL DIFF NO %
[2016-12-21 06:05] LABS: INTERNATIONAL NORMAL RATI 1.3 UNITS (-); PROTIME (NOT ORD) 16.4 SEC (12.0-14.5)
[2016-12-21 06:12] LABS: BUN (BLOOD UREA NITROGEN) 19 MG/DL (6-23); CHLORIDE, SERUM 111 MMOL/L (96-112); CO2 (CARBON DIOXIDE) 27 MMOL/L (24-34); CREATININE 1.29 MG/DL (0.70-1.30); GFR AFRICAN AMERICAN 59 ML/MIN (>=60); GFR NON AFRICAN AMERICAN 51 ML/MIN (>=60); POTASSIUM, SERUM 3.4 MMOL/L (3.5-5.3); SODIUM, SERUM 145 MMOL/L (135-148)
[2016-12-21 06:14] LABS: GLUCOSE, SERUM 110 MG/DL (60-99)
[2016-12-21 11:52] LABS: HEMATOCRIT 24.1 % (40.0-51.0); HEMOGLOBIN 8.2 g/dL (13.6-17.8)
[2016-12-21 16:36] LABS: HEMATOCRIT 22.8 % (40.0-51.0); HEMOGLOBIN 7.4 g/dL (13.6-17.8)
[2016-12-21 23:44] LABS: HEMATOCRIT 24.7 % (40.0-51.0); HEMOGLOBIN 8.3 g/dL (13.6-17.8)
[2016-12-22 04:07] LABS: BASOPHILS 0.3 %; BASOPHILS ABSOLUTE 0.02 10/3/uL (0.0-0.16); EOSINOPHILS 3.3 %; EOSINOPHILS ABSOLUTE 0.21 10/3/uL (0.0-0.53); HEMATOCRIT 23.5 % (40.0-51.0); HEMOGLOBIN 7.9 g/dL (13.6-17.8); IMMATURE GRANULOCYTES 0.5 %; IMMATURE GRANULOCYTES ABSOLUTE 0.03 10/3/uL (0.0-0.11); LYMPHOCYTES 27.7 %; LYMPHOCYTES ABSOLUTE 1.77 10/3/uL (0.67-4.30); MEAN CORPUS HGB CONC 33.6 g/dL (32.0-36.0); MEAN CORPUSCULAR HEMOGLOB 31.2 pg (26.0-34.0); MEAN CORPUSCULAR VOLUME 92.9 fL (80-100); MONOCYTES 9.7 %; MONOCYTES ABSOLUTE 0.62 10/3/uL (0.21-1.20); NEUTROPHILS 58.5 %; NEUTROPHILS ABSOLUTE 3.75 10/3/uL (2.02-8.40); PLATELET COUNT 125 10/3/uL (150-400); RBC DISTRIBUTION WIDTH 16.7 % (12.0-16.0); RED CELL COUNT 2.53 10/6/uL (4.7-6.1); WHITE BLOOD CELLS 6.4 10/3/uL (4.5-10.5)
[2016-12-22 04:08] LABS: MANUAL DIFF NO %
[2016-12-22 04:15] LABS: INTERNATIONAL NORMAL RATI 1.5 UNITS (-); PROTIME (NOT ORD) 18.3 SEC (12.0-14.5)
[2016-12-22 04:25] LABS: BUN (BLOOD UREA NITROGEN) 20 MG/DL (6-23); CALCIUM, SERUM 8.1 MG/DL (8.5-10.4); CHLORIDE, SERUM 109 MMOL/L (96-112); CO2 (CARBON DIOXIDE) 25 MMOL/L (24-34); CREATININE 1.22 MG/DL (0.70-1.30); GFR AFRICAN AMERICAN 64 ML/MIN (>=60); GFR NON AFRICAN AMERICAN 55 ML/MIN (>=60); GLUCOSE, SERUM 102 MG/DL (60-99); POTASSIUM, SERUM 3.7 MMOL/L (3.5-5.3); SODIUM, SERUM 141 MMOL/L (135-148)
[2016-12-23 06:00] LABS: BASOPHILS 0.2 %; BASOPHILS ABSOLUTE 0.01 10/3/uL (0.0-0.16); EOSINOPHILS 3.7 %; EOSINOPHILS ABSOLUTE 0.23 10/3/uL (0.0-0.53); HEMATOCRIT 24.2 % (40.0-51.0); IMMATURE GRANULOCYTES 0.3 %; IMMATURE GRANULOCYTES ABSOLUTE 0.02 10/3/uL (0.0-0.11); LYMPHOCYTES 25.5 %; LYMPHOCYTES ABSOLUTE 1.57 10/3/uL (0.67-4.30); MEAN CORPUS HGB CONC 33.1 g/dL (32.0-36.0); MEAN CORPUSCULAR HEMOGLOB 30.9 pg (26.0-34.0); MEAN CORPUSCULAR VOLUME 93.4 fL (80-100); MEAN PLATELET VOLUME 10.2 fL (9.2-13.0); MONOCYTES 9.8 %; NEUTROPHILS 60.5 %; NEUTROPHILS ABSOLUTE 3.72 10/3/uL (2.02-8.40); PLATELET COUNT 129 10/3/uL (150-400); RBC DISTRIBUTION WIDTH 16.9 % (12.0-16.0); RED CELL COUNT 2.59 10/6/uL (4.7-6.1); WHITE BLOOD CELLS 6.2 10/3/uL (4.5-10.5)
[2016-12-23 06:02] LABS: MANUAL DIFF NO %
[2016-12-23 06:11] LABS: INTERNATIONAL NORMAL RATI 1.5 UNITS (-); PROTIME (NOT ORD) 17.5 SEC (12.0-14.5)
[2016-12-24 06:05] LABS: BASOPHILS 0.2 %; BASOPHILS ABSOLUTE 0.01 10/3/uL (0.0-0.16); EOSINOPHILS 2.6 %; EOSINOPHILS ABSOLUTE 0.13 10/3/uL (0.0-0.53); HEMATOCRIT 23.3 % (40.0-51.0); HEMOGLOBIN 7.7 g/dL (13.6-17.8); IMMATURE GRANULOCYTES 0.6 %; IMMATURE GRANULOCYTES ABSOLUTE 0.03 10/3/uL (0.0-0.11); LYMPHOCYTES 26.2 %; LYMPHOCYTES ABSOLUTE 1.33 10/3/uL (0.67-4.30); MANUAL DIFF NO %; MEAN PLATELET VOLUME 10.7 fL (9.2-13.0); MONOCYTES 10.1 %; MONOCYTES ABSOLUTE 0.51 10/3/uL (0.21-1.20); NEUTROPHILS 60.3 %; NEUTROPHILS ABSOLUTE 3.06 10/3/uL (2.02-8.40); PLATELET COUNT 140 10/3/uL (150-400); RBC DISTRIBUTION WIDTH 17.2 % (12.0-16.0); RED CELL COUNT 2.48 10/6/uL (4.7-6.1); WHITE BLOOD CELLS 5.1 10/3/uL (4.5-10.5)
[2016-12-24 06:10] LABS: INTERNATIONAL NORMAL RATI 1.4 UNITS (-); PROTIME (NOT ORD) 16.6 SEC (12.0-14.5)
[2016-12-24 06:17] LABS: BUN (BLOOD UREA NITROGEN) 19 MG/DL (6-23); CALCIUM, SERUM 8.4 MG/DL (8.5-10.4); CHLORIDE, SERUM 107 MMOL/L (96-112); CO2 (CARBON DIOXIDE) 25 MMOL/L (24-34); CREATININE 1.31 MG/DL (0.70-1.30); GFR AFRICAN AMERICAN 58 ML/MIN (>=60); GFR NON AFRICAN AMERICAN 50 ML/MIN (>=60); GLUCOSE, SERUM 100 MG/DL (60-99); SODIUM, SERUM 141 MMOL/L (135-148)
[2016-12-24 06:19] LABS: POTASSIUM, SERUM 3.9 MMOL/L (3.5-5.3)
[2016-12-25 05:59] LABS: BASOPHILS 0.4 %; BASOPHILS ABSOLUTE 0.02 10/3/uL (0.0-0.16); HEMOGLOBIN 8.5 g/dL (13.6-17.8); IMMATURE GRANULOCYTES ABSOLUTE 0.05 10/3/uL (0.0-0.11); LYMPHOCYTES 26.3 %; LYMPHOCYTES ABSOLUTE 1.33 10/3/uL (0.67-4.30); MEAN CORPUS HGB CONC 32.9 g/dL (32.0-36.0); MEAN CORPUSCULAR HEMOGLOB 31.4 pg (26.0-34.0); MEAN CORPUSCULAR VOLUME 95.2 fL (80-100); MEAN PLATELET VOLUME 10.7 fL (9.2-13.0); MONOCYTES 13.3 %; MONOCYTES ABSOLUTE 0.67 10/3/uL (0.21-1.20); NEUTROPHILS ABSOLUTE 2.78 10/3/uL (2.02-8.40); PLATELET COUNT 148 10/3/uL (150-400); RBC DISTRIBUTION WIDTH 17.3 % (12.0-16.0); RED CELL COUNT 2.71 10/6/uL (4.7-6.1); WHITE BLOOD CELLS 5.1 10/3/uL (4.5-10.5)
[2016-12-25 06:00] LABS: HEMATOCRIT 25.8 % (40.0-51.0); MANUAL DIFF NO %
[2016-12-25 06:05] LABS: INTERNATIONAL NORMAL RATI 1.4 UNITS (-); PROTIME (NOT ORD) 16.8 SEC (12.0-14.5)
[2016-12-25 06:21] LABS: BUN (BLOOD UREA NITROGEN) 18 MG/DL (6-23); CALCIUM, SERUM 8.6 MG/DL (8.5-10.4); CHLORIDE, SERUM 108 MMOL/L (96-112); CO2 (CARBON DIOXIDE) 26 MMOL/L (24-34); GFR AFRICAN AMERICAN 65 ML/MIN (>=60); GFR NON AFRICAN AMERICAN 56 ML/MIN (>=60); GLUCOSE, SERUM 103 MG/DL (60-99); POTASSIUM, SERUM 3.9 MMOL/L (3.5-5.3); SODIUM, SERUM 142 MMOL/L (135-148)
[2016-12-26 05:10] LABS: BASOPHILS 0.4 %; BASOPHILS ABSOLUTE 0.02 10/3/uL (0.0-0.16); EOSINOPHILS 3.5 %; EOSINOPHILS ABSOLUTE 0.19 10/3/uL (0.0-0.53); HEMATOCRIT 24.6 % (40.0-51.0); HEMOGLOBIN 8.1 g/dL (13.6-17.8); IMMATURE GRANULOCYTES 0.9 %; IMMATURE GRANULOCYTES ABSOLUTE 0.05 10/3/uL (0.0-0.11); LYMPHOCYTES 27.2 %; LYMPHOCYTES ABSOLUTE 1.46 10/3/uL (0.67-4.30); MEAN CORPUS HGB CONC 32.9 g/dL (32.0-36.0); MEAN CORPUSCULAR HEMOGLOB 31.3 pg (26.0-34.0); MEAN PLATELET VOLUME 10.1 fL (9.2-13.0); MONOCYTES 12.9 %; MONOCYTES ABSOLUTE 0.69 10/3/uL (0.21-1.20); NEUTROPHILS 55.1 %; NEUTROPHILS ABSOLUTE 2.95 10/3/uL (2.02-8.40); PLATELET COUNT 149 10/3/uL (150-400); RBC DISTRIBUTION WIDTH 17.5 % (12.0-16.0); RED CELL COUNT 2.59 10/6/uL (4.7-6.1); WHITE BLOOD CELLS 5.4 10/3/uL (4.5-10.5)
[2016-12-26 05:11] LABS: MANUAL DIFF NO %
[2016-12-26 05:33] LABS: BUN (BLOOD UREA NITROGEN) 20 MG/DL (6-23); CALCIUM, SERUM 8.4 MG/DL (8.5-10.4); CHLORIDE, SERUM 109 MMOL/L (96-112); CO2 (CARBON DIOXIDE) 26 MMOL/L (24-34); CREATININE 1.28 MG/DL (0.70-1.30); GFR AFRICAN AMERICAN 60 ML/MIN (>=60); GFR NON AFRICAN AMERICAN 52 ML/MIN (>=60); GLUCOSE, SERUM 102 MG/DL (60-99); SODIUM, SERUM 142 MMOL/L (135-148)
[2016-12-26 05:34] LABS: INTERNATIONAL NORMAL RATI 1.5 UNITS (-); PROTIME (NOT ORD) 18.2 SEC (12.0-14.5)
[2016-12-26] MEDS ORDERED: FESO4 PO (09:09)
[2016-12-26] MEDS ORDERED: MIRALAX POWDER1 PKT PO (09:12)
[2016-12-26] MEDS ORDERED: DSS PO (09:19)
== END 2016-12-26 14:09 | disposition home health service (06) | DRG 357 ==
LOC: ER 02:58 → 7NO 04:31 → MIC 18:25 → 7NO 12-20 14:16
PROVIDERS: Hospitalist; Internal Medicine Clinical Cardiac Electrophysiology; Internal Medicine Gastroenterology; Internal Medicine Pulmonary Disease; Nurse Practitioner Family; Specialist
PROC: 30233K1 Transfusion of Nonautologous Frozen Plasma into Peripheral Vein, Percutaneous Approach (ICD-10-PCS; principal; 2016-12-18)
PROC: 04LB3DZ Occlusion of Inferior Mesenteric Artery with Intraluminal Device, Percutaneous Approach (ICD-10-PCS; 2016-12-18)
PROC: 30233N1 Transfusion of Nonautologous Red Blood Cells into Peripheral Vein, Percutaneous Approach (ICD-10-PCS; 2016-12-18)
PROC: B4151ZZ Fluoroscopy of Inferior Mesenteric Artery using Low Osmolar Contrast (ICD-10-PCS; 2016-12-18)
DX: K57.31 Diverticulosis of large intestine without perforation or abscess with bleeding (principal); N17.9 Acute kidney failure, unspecified; I48.2 Chronic atrial fibrillation; I13.0 Hypertensive heart and chronic kidney disease with heart failure and stage 1 through stage 4 chronic kidney disease, or unspecified chronic kidney disease; I50.22 Chronic systolic (congestive) heart failure; D62 Acute posthemorrhagic anemia; N18.3 Chronic kidney disease, stage 3 (moderate); I25.5 Ischemic cardiomyopathy; I87.2 Venous insufficiency (chronic) (peripheral); I25.10 Atherosclerotic heart disease of native coronary artery without angina pectoris; Z79.01 Long term (current) use of anticoagulants; Z86.718 Personal history of other venous thrombosis and embolism; Z86.711 Personal history of pulmonary embolism; Z95.5 Presence of coronary angioplasty implant and graft; Z79.82 Long term (current) use of aspirin; Z83.3 Family history of diabetes mellitus
CPT/HCPCS: 36247; 36415; 37244; 75726; 78278; 80048; 80053; 82962; 83735; 84100; 84132; 85014; 85018; 85025; 85610; 85730; 86850; 86900; 86901; 86920; 87641; 93005; 97116-GP; 97161-GP; 99152; 99153; 99285; A9270-GY; A9560; C1769; C1884; C1887; C1894; G8978-CK-GP; G8979-CI-GP; J0461; J1940; J2250; J3010; J3430; P9016; P9059; Q9967